=== PATIENT | female | born 1985 | race Two or more races ===

== ENCOUNTER → 2021-01-29 | Outpatient (CLI) | payer OTHER ==
--- NOTE | 2021-01-29 13:08 | KCIC ---
Single view of the chest. 01/29/2021 8:36 AM Indication: Reason: TB EXPOSURE / Spl. Instructions: / History: Comparison: Chest radiograph November 17, 2014 Findings: There is no focal consolidation. There is no pleural effusion or pneumothorax. The cardiome diastinal silhouette and pulmonary vasculature are within normal limits. No acute osseous abnormaliti es are seen. Impression: No evidence of acute cardiopulmonary process. Electronically signed by: Jon Holt MD (01/29/2021 1:06 PM) [id number]
== END ==
LOC: KCIC 08:33
PROVIDERS: ATTEND Family Medicine
DX: Z20.1 Contact with and (suspected) exposure to tuberculosis (principal)
CPT/HCPCS: 71045